=== PATIENT | male | born 1985 | race African-American/Black ===

== ENCOUNTER 2016-08-09 10:49 | Emergency (ER) | payer OTHER ==
[~2016-08-09 10:49] MED LIST: CEPHALEXIN500 M1 PO; CLINDAMYCIN HC150 MG PO; IBU800 M1 PO; LORTAB 5/500 501 TAB PO; NIZORAL CREAM15 GM TP; NO HOME MEDICATIONS; NORCO 325 MG-51 TAB PO; ULTRAM 50MG TAB50 MG PO
[2016-08-09 10:54] VITALS: BP 137/84; PULSE 83; TEMP 99.1
== END 2016-08-09 11:00 | disposition home or self-care (01) ==
LOC: COL.ER 10:49
DX: Z48.02 Encounter for removal of sutures (principal)

== ENCOUNTER 2018-10-20 08:23 | Emergency (ER) | payer BC ==
[~2018-10-20] VITALS: Ht 175.3 cm; Wt 77.3 kg
[2018-10-20 08:40] VITALS: TEMP 98.8
[2018-10-20 09:49] LABS: COLLECTION METHOD CLEAN CATCH
[2018-10-20 09:57] LABS: MUCOUS Present /lpf; PH 5 (5-8); SQUAMOUS EPITHELIAL 0-2 /hpf; URINE APPEARANCE Clear; URINE BACTERIA None Seen /hpf; URINE BILIRUBIN Negative (NEGATIVE); URINE BLOOD 1+ (NEGATIVE); URINE COLOR Yellow; URINE GLUCOSE Negative (NEGATIVE); URINE KETONE Trace (NEGATIVE); URINE LEUKOCYTE ESTERASE Negative (NEGATIVE); URINE NITRATE Negative (NEGATIVE); URINE PROTEIN(semi-quant) 1+ (NEGATIVE); URINE RBC 0-2 /hpf
[2018-10-20] MEDS ORDERED: ANUSOL HC CREAM30 GM TP (10:51)
[2018-10-20] MEDS ORDERED: LAMISIL250 M1 PO (10:51)
[2018-10-20 11:11] VITALS: BP 173/102; PULSE 66
== END 2018-10-20 11:15 | disposition home or self-care (01) ==
LOC: COL.ER 08:23
PROVIDERS: Nurse Practitioner
DX: K64.8 Other hemorrhoids (principal); R21 Rash and other nonspecific skin eruption; F17.210 Nicotine dependence, cigarettes, uncomplicated

== ENCOUNTER 2022-08-28 09:42 | Emergency (ER) | payer OTHER ==
[~2022-08-28] VITALS: Ht 175.3 cm; Wt 89.5 kg
[~2022-08-28 09:42] MED LIST changes: +ANUSOL HC CREAM30 GM TP; +LAMISIL250 M1 PO
[2022-08-28 09:46] VITALS: BP 157/89; TEMP 98.1
[2022-08-28 11:03] VITALS: PULSE 60
== END 2022-08-28 11:03 | disposition home or self-care (01) ==
LOC: COL.ER 09:42
DX: M62.830 Muscle spasm of back (principal); F17.210 Nicotine dependence, cigarettes, uncomplicated; Z28.310 Unvaccinated for COVID-19
CPT/HCPCS: J1885